=== PATIENT | female | born 1960 | race Caucasian/White ===

== ENCOUNTER 2018-12-22 15:30 | Inpatient (IN) | payer BC ==
[~2018-12-22] VITALS: Ht 157.5 cm; Wt 45.5 kg
[2018-12-29] VITALS (22 sets, daily range): BP systolic 96–124; BP diastolic 42–71; PULSE 50–71; RESP 16–20; Ht 157.5 cm; Wt 45.5 kg
--- NOTE | 2018-12-29 15:14 | PREAC ---
Date/Time of Note Date/Time of Note DATE: 12/29/18 TIME: 15:08 Anesthesia Eval and Record Evaluation Time Pre-Procedure Interview DATE: 12/29/18 TIME: 15:08 Age 58 Sex female NPO: Other (1/2 cup black coffee at 09:00) Preoperative diagnosis Uterine fibroid, right ovarian mass Planned procedure Laparoscopy assisted hysterectomy, possible BSO Past Medical History Past Medical History: Includes Psych: Anxiety Surgery & Anesthesia Issues No known issue Meds Anticoagulation: No Beta Wolfgang within 24 hr: No Reason Beta Wolfgang not given: Pt. not on B-Wolfgang No Active Prescriptions or Reported Meds Current Medications Lactated Ringer's 1,000 ml @ 25 mls/hr Q24H IV ; Start 12/29/18 at 14:30 Meds reviewed: Yes Allergies Coded Allergies: No Known Allergy (Unverified , 12/29/18) Allergies Reviewed: Yes Labs/Studies Labs Reviewed: Reviewed by anesthesiologist Result Diagram: 12/29/18 1428 Laboratory Tests 12/29/18 14:28 test: N/A Pre-procedure Exam Airway: Adequate mouth opening Mallampati: Mallampati I Teeth: Normal Lung: Normal Heart: Normal ASA Physical Status ASA physical status: 2 Emergency: None Planned Anesthetic General/MAC: ETT Planned Pain Management Parenteral pain med Pre-operative Attestations Prior to commencing anesthesia and surgery, the patient was re-evaluated, there was verification of: *The patient's identity *The results of appropriate recent lab work and preoperative vital signs *The above evaluation not changing prior to induction *Anesthetic plan, risk benefits, alternative and complications discussed with patient/family; questions answered; patient/family understands, accepts and wishes to proceed. XIMENA WOOD MD Dec 29, 2018 15:14
[2018-12-29] MEDS ORDERED: ONDANSETRON 4 MG INJ ONE (16:00)
[2018-12-29] MEDS ORDERED: METOCLOPRAMIDE 10 MG INJ ONE (16:00)
--- NOTE | 2018-12-29 16:02 | HPN ---
Date/Time of Note Date/Time of Note DATE: 12/29/18 TIME: 16:02 Interval H&P Admission Note Pt. seen H&P reviewed: No system changes RADHA UMAÑA MD Dec 29, 2018 16:02
[2018-12-29] MEDS ORDERED: PROPOFOL 20 ML ONE (16:09)
[2018-12-29] MEDS ORDERED: SUCCINYLCHOLINE CHLORIDE 100 MG/5 ML SYG IV ONE (16:09)
[2018-12-29] MEDS ORDERED: GLYCOPYRROLATE 0.4 MG INJ ONE (16:09)
[2018-12-29] MEDS ORDERED: NEOSTIGMINE 3 MG/3 ML SYRINGE ONE (16:09)
[2018-12-29] MEDS ORDERED: ROCURONIUM 50 MG INJ ONE ×2 (16:09→17:13)
[2018-12-29] MEDS ORDERED: LIDOCAINE 2% (SDV) 5 ML INJ ONE (16:09)
[2018-12-29] MEDS ORDERED: CEFAZOLIN 1 GM INJ ONE (16:28)
[2018-12-29] MEDS ORDERED: BUPIVACAINE 0.25%/EPI (SDV) 30 ML INJ ONE (16:59)
[2018-12-29] MEDS ORDERED: EPHEDrine 25 MG/5 ML SYG ONE (17:31)
[2018-12-29] MEDS ORDERED: FENTAnyl 50 MCG/ML VIAL IV PRN ×2 (18:00)
[2018-12-29] MEDS ORDERED: DIPHENHYDRAMINE 50 MG INJ IV PRN (18:00)
[2018-12-29] MEDS ORDERED: MIDAZOLAM 1 MG/ML 2 ML INJ IV PRN (18:00)
[2018-12-29] MEDS ORDERED: METOCLOPRAMIDE 10 MG INJ IV PRN (18:00)
[2018-12-29] MEDS ORDERED: HYDROmorphONE 1 MG/5 ML IV SYRINGE IV PRN ×3 (18:00)
[2018-12-29] MEDS ORDERED: MEPERIDINE 25 MG INJ IV PRN (18:00)
[2018-12-29] MEDS ORDERED: hydrALAzine 20 MG INJ IV PRN (18:00)
[2018-12-29] MEDS ORDERED: EPHEDrine 25 MG/5 ML SYG IV PRN (18:00)
[2018-12-29] MEDS ORDERED: ONDANSETRON 4 MG INJ IV PRN (18:00)
[2018-12-29] MEDS ORDERED: LABETALOL HCL 20MG INJ IV PRN (18:00)
[2018-12-29] MEDS ORDERED: OXYCODONE/ACETAMINOPHEN (5/325) TAB PO PRN ×2 (18:00)
[2018-12-29] MEDS ORDERED: FENTAnyl 50 MCG/ML VIAL ONE (18:09)
[2018-12-29] MEDS ORDERED: SILVER NITRATE SWAB ONE (19:20)
[2018-12-29] MEDS: FENTAnyl 50 MCG/ML VIAL IV PRN ×2 (20:08→20:18)
--- NOTE | 2018-12-29 20:28 | OPR ---
Date/Time of Note Date/Time of Note DATE: 12/29/18 TIME: 20:11 Operative Report Procedure Date: Dec 29, 2018 Preoperative Diagnosis 1. Abdominal and pelvic pain 2. Constipation/difficulty with stool evacuation 3. Right pelvic cyst 4. Uterine fibroids Postoperative Diagnosis 1. Ventral recurrent hernia 2. Abdominal wall suture granuloma 3. Large right paraovarian cyst 4. Right tube and ovary torsion due to cyst however not gangrenous 5. Diverticulosis with thickened sigmoid upper rectum (questionable history of diverticulitis) 6. Slight discoloration of liver color 7. Large posterior uterine fibroid with other uterine fibroids 8. Abdominal and pelvic pain 9. Constipation/difficulty with stool evacuation Operation/Procedure Performed 1. Primary repair of ventral hernia 2. Excision of abdominal wall suture granuloma 3. Diagnostic laparoscopy 4. Laparoscopic guided bilateral transversus abdominis plane block 5. Local anesthetic injection, [id number] 6. Intraoperative consultation 7. Laparoscopic assisted total abdominal hysterectomy with right salpingo- oophorectomy and cystectomy (co-surgeon) Surgeon Kika Gil MD Freight Breaker Shivani Iraheta MD Anesthesia Type: general (, Local, regional) Anesthesiologist: XIMENA WOOD MD Estimated Blood Loss: 10 - 50 ml's Transfusion none Specimen 1. Uterus 2. Right ovary, tube, and cyst 3. Pelvic fluid washings Grafts/Implants none Tubes/Drains None Complications none Pt Condition Post Procedure: stable Disposition: PACU Indications 58-year-old female with chronic abdominal and pelvic pain associated with difficulty with defecation. Imaging has identified uterine fibroids with pelvic cyst. She is here for diagnosis and indicated surgeries. General surgical intraoperative saltation is obtained by the dice manager for further evaluation, treatment and assistance in surgery. Procedure Description Patient had been brought in & placed on the operating table, both arms tucked and all pressure points well-padded. After induction of anesthesia Dhillon was placed she was placed in lithotomy and preoperative antibiotics administered. T imeout was performed. Gynecology initiated her surgery and cervical instruments were placed. I was called in at this time. Local anesthetic injection was performed at all surgical sites. Incision was made through the previous ventral hernia incision and a small defect was identified. Suture granuloma was also identified at the site. Suture granuloma was sharply excised and sent to pathology. Using blunt dissection abdomen was safely entered 5 mm port was applied and abdomen was insufflated to 15 mmHg CO2. Under direct visualization to other 5 mm ports were placed on either side of the abdomen. Laparoscopic guided bilateral transversus abdominis plane block was performed to aid with pain control intra-and postoperatively. Investigation of the abdomen identified normal appendix. There were slightly discolored. Gallbladder is within normal parameters. Bowel mostly normal ho wever sigmoid and upper rectum had diverticuli with some thickening with possible evidence of previous infection. Uterus has a large posterior fibroid with small or other fibroids. There is a large pelvic cyst filling up the entire pelvis. The cyst looks benign. However is pushing on the rectum. The cyst has also caused torsion of the right tube and ovary. This must be interm ittent because there is no gangrene of the structures. Left ovary seems within normal parameters. At this point decision made to proceed with right salpingo-oophorectomy and total abdominal hysterectomy which would be dictated by the dice manager. Pelvi c fluid was also aspirated and sent to pathology. After completion of above, the ventral hernia fascial defect was closed prima rily using Endo Close and 0 Vicryl in a [id number] manner. There was complete hemostasis. CO2 was suctioned out and ports removed. Wounds were thoroughly irrigated and skin was closed with 4-0 Monocryl in subcuticular fashion and covered with Dermabond. Patient was extubated and transferred to recovery room in stable condition and all counts were correct at the end of the operation x2. KIKA GIL MD Dec 29, 2018 20:22
[2018-12-29] MEDS ORDERED: HYDROmorphONE 0.2 MG/ML PCA IV SCH (21:00)
--- NOTE | 2018-12-29 21:07 | PAC ---
Date/Time of Note Date/Time of Note DATE: 12/29/18 TIME: 21:06 Post-Anesthesia Notes Post-Anesthesia Note Last documented vital signs Vital Signs Date Temp Pulse Resp B/P (MAP) Pulse Ox O2 O2 Flow FiO2 Time Delivery Rate 12/29/18 99.5 67 16 111/62 97 Room Air 15:03 (78) Activity: WNL Respiratory function: WNL Cardiovascular function: WNL Mental status: Baseline Pain reasonably controlled: Yes Hydration appropriate: Yes Nausea/Vomiting absent: Yes Comments BT: 98.2 XIMENA WOOD MD Dec 29, 2018 21:07
--- NOTE | 2018-12-29 22:11 | OPR ---
Date/Time of Note Date/Time of Note DATE: 12/29/18 TIME: 21:50 Operative Report Free Text/Dictation Procedure Date: Dec 29, 2018 Preoperative Diagnosis Preoperative Diagnosis 1. Abdominal and pelvic pain 2. Constipation/difficulty with stool evacuation 3. Large symptomatic Right ovarian simple cyst 4. Uterine fibroids, increased in size Postoperative Diagnosis Postoperative Diagnosis 1. Ventral recurrent hernia 2. Large right paraovarian cyst 3. Right tube and ovary torsion due to cyst however not gangrenous finding consistent with intermittent torsion 4. Large posterior intramural fibroid. 5. atrophic vaginits. Atrophic cervix 6. Normal Left ovary and tube. RT ovary appears normal as well. Operation/Procedure Performed Diagnostic laparoscopy Laparoscopic right salpingo-oophorectomy as well as right paraovarian cystectomy Upper scopic assisted vaginal hysterectomy. Jeffery Pfeiffer was called in to surgery for consult and he performed repair and removal of the granuloma in the area of hernia repair as well Performed Exploratory Diagnosic Laparascopy. Please see Dr. Gil's note for this part of the dictation. Surgeon see signature line MD Pierce Xavier MD Machine Coremaker Surgical scrub Anesthesia Type: general Anesthesiologist: XIMENA WOOD MD Estimated Blood Loss: 50 - 100 ml's Transfusion none Specimen Right paraovarian cyst wall, right tube and ovary, uterus with attached fibroid and cervix Grafts/Implants none Tubes/Drains None Complications none Pt Condition Post Procedure: stable Disposition: PACU Indications Left lower abdominal pain, right and large ovarian cyst as well as uterine fibroid Procedure Description 58-year-old G1, P0 female postmenopausal with chronic left-sided pelvic pain as well as right ovarian cyst and fibroid that recently slightly increase in the size and became symptomatic patient desires to proceed with surgery. After counseling regarding different options patient desires to proceed with laparoscopic right salpingo-oophorectomy and possible bilateral salpingo- nephrectomy and possible lap scopic assisted vaginal hysterectomy with bilateral salpingo-oophorectomy at the discretion of the surgeon. Patient reported chronic abdominal pain with difficulty with bowel movements. She underwent colonoscopy that showed colon polyps and otherwise unremarkable. She was referred to commissioning specialist for surgery due to symptomatic large right ovarian cyst that has been increased slightly in the size as well as increasing size of uterine fibroids. Patient reports history of hernia surgery in the past x2 with removal of mesh. She reports symptoms of abdominal pain has been going on for the last 4 to 5 years after the hernia repair. She was counseled regarding risk and benefit of procedure including risk of infection, bleeding, damage to surrounding structures including bowel and bladder and risk of blood transfusion including but not limited to blood borne infection including HIV, hepatitis B and C and transfusion reaction as well as risk of anesthesia including but not limited to anesthesia complications, , risk of need for additional surgical procedure in the future. Informed consent was obtained. Patient was then taken to the OR and was placed under general LMA anesthesia. She was placed in dorsolithotomy position. Timeout procedure was completed and patient was identified correctly. Dhillon catheter was placed inside the bladder and she was then prepped and draped in the sterile fashion. Then a bivalve speculum was placed inside the vagina. Anterior lip of the cervix was grasped using tenaculum. Cervix and vagina appeared to be atrophic and small that correlated with her postmenopausal status as well as nulliparous. Attempt was made to place the V care catheter and HUMI manipulator in order to manipulate the uterus intraoperatively that was unsuccessful due to stenotic cervix. So this procedure has failed even after serial dilation of the Hegar dilator. At this point a hookah was passed through the cervix and it was transfixed to the tenaculum on the anterior lip of the cervix. A sponge stick also placed inside the vagina. Then the gloves were changed and attention was made to the abdomen. After injection of about 3 to 4 cm quarter percent Marcaine above and around the umbilicus a 5 mm incision was made above the umbilicus. At this point due to presents of hernia in the umbilicus Intra-Op consultation with Dr. Gil was performed who attended to the case and scrubbed in. He opened the umbilical hernia sac and with careful attention the 5 mm trocar was passed through this incision into the abdomen successfully. Then intra-abdominal insufflation started using CO2 gas. After adequate insufflation of the abdominal cavity then the entire pelvis and abdomen was visualized and evaluated. Then Two 5 mm trochars also in the right and left lower quadrant under direct visualization after negative transillumination test was placed. There was evidence of an 7 to 8 cm simple mobile cystic mass in the right adnexa that had been twist 3-4 times around the pedicle. Tubo-ovarian structure in that site was twisted several times around the base. However the tube and ovary and cyst did not appear to go necrotic. There was also evidence of a large about 5 to 6 cm posterior uterine intramural fibroid. The left tube and ovary appeared to be normal. Apparent further visualization evaluation of the pelvis cavity there was evidence of diverticulosis of the colon, this part was visualized and evaluated by general surgeon Dr. Gil. Then at this point decision was made to proceed with right salpingo-oophorectomy as well as lap or scopic assisted vaginal hysterectomy. Then using thunder beat the IP ligament and the right side was clamped click and coagulated and then dissected and the tubo-ovarian complex with attached paratubal enlarged cyst was dissected off of the uterus. It was then placed in the posterior cul-de-sac. Then procedure proceeded by performing hysterectomy in this fashion. First the utero-ovarian ligament in the left side was clamped click and coagulated using thunder beat then the round ligaments in the right and left side was clamped click and coagulated and was dissected using thunder beat. A bladder flap was created. The bladder was gently pushed down from the pubovesical fascia as well as pubocervical fascia with careful attention to the bladder. Then the broad ligament in the right and left side was serially with close proximity to the uterus serially was clamped click and coagulated while data entry assistant was pushing the uterus toward the patient;s head. Of note that at all time careful attention was paid to the ureters and the entire procedure to ensure ureters staying away of the resection sites. Then the uterine ligaments in both sides was clamped click and coagulated and dissected and then the uterosacral ligaments and cardinal ligament in a similar fashion was clamped click and coagulated and dissected. Due to inability to place the V care or uterine manipulator due to small atrophic nulliparous cervix, there was some difficulty in finding the entire circumference of the cervix in order to dissected from the vaginal cuff at this point decision was made to proceed this parts vaginally. Then attention was turned to the vagina where the anterior and posterior lip of the cervix was grasped using Moon clamp after removing of the Hulka clamp and tenaculum from the cervix. Then the mucosa around the cervix anteriorly posteriorly and laterally using Bovie and cut setting was incised. Then bladder was dissected off of the cervix anteriorly. Then the peritoneum of the cul-de-sac was entered with careful attention to underlying structure. Then the cardinal ligaments in the right and left side was then clamped using Rodriguez clamp and was dissected off and suture-ligated. The cervix and attached uterus and fibroids were then delivered after Ling ligation of the cardinal ligament on both sides through the vaginal cuff. Then attention was turned to the dissected paraovarian cyst and tube and ovary in the right side and it was then placed in the 15 cm Endobag that was passed through the vaginal cuff to the abd omen. The cyst intact was placed inside the Endobag and was delivered through the Endobag from the vaginal cuff. No intra-abdominal leaking or rupture of the cyst occurred during the procedure. After this the vaginal cuff was repaired in multiple [id number] sutures using 1-0 Vicryl in interrupted fashion. Excellent hemostasis of the vaginal cuff obtained. Then the vagina and the vulva was evaluated. Slight area of oozing of atrophic mucosa of the vestibule was noted that controlled using silver nitrate stick. Irrigation of the vagina confirmed adequate hemostasis. Then the entire Pelvis and abdomen was visualized after changing of the gloves reassured. Laparoscopically. Excellent hemostasis of the cough was ureters in both sides were trace and was noted to be intact and normal. Normal peristalsis of the ureters was noted. Then the upper abdomen,:, Appendix, gallbladder and the rest of the abdomen and pelvis was visualized systematically by Dr. Gil. Please refer to Dr. Gil's note for this part of the dictation. Then the umbilical hernia granuloma was excised by Dr. Gil. Please refer to this part of dictation to his nose. After assurance about hemostasis at the completion of the procedure the trochars and umbilicus and left and right lower quadrant was removed after desufflation of the entire abdomen and pelvis by the patient was in deep Trendelenburg position. Sponge lap and his instrument count were correct x2. Patient tolerated the procedure well and was transferred to recovery room in stable condition RADHA UMAÑA MD Dec 29, 2018 22:11
[2018-12-29] MEDS: LACTATED RINGER'S 1,000 ML IV SCH (22:45)
[2018-12-30 00:15] VITALS: BP 113/55; PULSE 71; RESP 18
[2018-12-30 01:19] VITALS: BP 101/57; PULSE 79; RESP 18
[2018-12-30] MEDS: LACTATED RINGER'S 1,000 ML IV SCH ×3 (04:35→21:35)
[2018-12-30] MEDS ORDERED: GENTAMICIN 80 MG INJ IM SCH (06:00)
[2018-12-30] MEDS: CLINDAMYCIN 900 MG/D5W (PMX) 50 ML IVPB SCH ×3 (06:00→17:32)
[2018-12-30] MEDS ORDERED: GENTAMICIN 80 MG/NS (PMX) 50 ML IVPB SCH ×2 (07:00→14:00)
[2018-12-30] MEDS ORDERED: GENTAMICIN 80 MG INJ IVPB SCH ×2 (07:00→14:00)
[2018-12-30] MEDS: GENTAMICIN 80 MG/NS (PMX) 50 ML IVPB SCH ×3 (07:54→23:27)
[2018-12-30 08:56] VITALS: BP 110/65; PULSE 56; RESP 16
[2018-12-30] MEDS ORDERED: NALOXONE (0.4 MG/ML) INJ IV PRN (10:30)
[2018-12-30] MEDS ORDERED: DIPHENHYDRAMINE 50 MG INJ IV PRN (10:30)
[2018-12-30] MEDS ORDERED: HYDROCODONE/APAP (5/325) TAB PO PRN (10:30)
[2018-12-30] MEDS ORDERED: OXYCODONE/ACETAMINOPHEN (5/325) TAB PO PRN ×2 (10:30)
[2018-12-30] MEDS ORDERED: ONDANSETRON 4 MG INJ IV PRN (10:30)
[2018-12-30] MEDS ORDERED: HYDROmorphONE 0.2 MG/ML PCA IV SCH (10:30)
--- NOTE | 2018-12-30 15:44 | QN ---
Documentation Comment Patient tolerated clear liquid diet. Still does not have appetite. Has not passed flatus. Has not been out of the bed yet. Denies any nausea vomiting. Reports pain well controlled with ORCHARD HAND Dilaudid. General appearance: Alert and oriented x4 . Appears to be in mild to moderate distress Abdomen: Soft, moderately distention and tympanic noted. There is appropriate tenderness in the left scopic incisions noted. Lungs: Clear to auscultation bilaterally CV: RRR Extremities: No calf tenderness, no click no edema no cord palpable Pelvic exam deferred. Intake and Output 12/30/18 0707:00 IntakeIntake Total 3750 ml OutputOutput Total 1390 ml BalanceBalance 2360 ml IntakeIntake Oral 200 ml IVIV Total 3550 ml OutputOutput Urine Total 1350 ml EstimatedEstimated Blood Loss 40 ml VS - Last 72 Hours, by Label Date Temp Pulse Resp B/P (MAP) Pulse Ox O2 O2 Flow FiO2 Time Delivery Rate 12/30/18 18 12:00 12/30/18 98.0 56 16 110/65 98 Nasal 08:56 (80) Cannula 12/30/18 18 08:00 12/30/18 18 04:49 12/30/18 98.2 79 18 101/57 97 Nasal 2.0 01:19 (72) Cannula 12/30/18 18 01:12 12/30/18 97.9 71 18 113/55 98 Nasal 2.0 00:15 (74) Cannula 12/29/18 71 19 118/71 99 Nasal 2.0 23:15 (87) Cannula 12/29/18 98.0 69 19 115/53 98 Nasal 2.0 22:49 (73) Cannula 12/29/18 69 18 119/59 99 Nasal 2.0 22:15 (79) Cannula 12/29/18 66 18 123/58 Nasal 22:00 (79) Cannula 12/29/18 65 18 121/58 95 Nasal 2.0 21:43 (79) Cannula 12/29/18 18 91 Room Air 21:40 12/29/18 97.5 64 18 124/58 95 Room Air 21:25 (80) 12/29/18 98.3 60 20 106/61 100 Nasal 2.0 21:15 (76) Cannula 12/29/18 59 17 102/63 100 Nasal 2.0 21:10 (76) Cannula 12/29/18 58 16 102/54 100 Nasal 2.0 21:05 (70) Cannula 12/29/18 59 20 106/50 100 Nasal 2.0 21:00 (68) Cannula 12/29/18 50 17 103/42 100 Nasal 2.0 20:55 (62) Cannula 12/29/18 60 17 105/50 100 Nasal 2.0 20:50 (68) Cannula 12/29/18 52 19 110/50 99 Nasal 2.0 20:45 (70) Cannula 12/29/18 52 20 102/52 99 Nasal 2.0 20:40 (69) Cannula 12/29/18 52 17 100/48 98 Nasal 2.0 20:35 (65) Cannula 12/29/18 52 20 98/48 (65) 98 Nasal 2.0 20:30 Cannula 12/29/18 60 19 96/54 (68) 98 Nasal 2.0 20:25 Cannula 12/29/18 56 19 101/49 98 Nasal 2.0 20:20 (66) Cannula 12/29/18 98.0 20:15 12/29/18 69 20 115/60 99 Mask 2.0 20:05 (78) 12/29/18 98.2 69 19 112/60 99 Mask 2.0 19:58 (77) 12/29/18 99.5 67 16 111/62 97 Room Air 15:03 (78) Laboratory Tests Test 12/29/18 20:35 12/30/18 06:44 Urine Color YELLOW Urine Clarity SLIGHTLY CLOUDY A Urine pH 7.0 Urine Specific [place] 1.011 Urine Ketones NEGATIVE Urine Nitrite NEGATIVE Urine Bilirubin NEGATIVE Urine Urobilinogen NEGATIVE Urine Leukocyte Esterase NEGATIVE Urine Microscopic RBC 157 H Urine Microscopic WBC 2 Urine Mucus FEW A Urine Hemoglobin 2+ H Urine Glucose NEGATIVE Urine Total Protein NEGATIVE Lab Scanned Report REFERENCE LAB Assessment Postop day #1 Status post laparoscopicright salpingo-oophorectomy, and lap scopic assisted vaginal hysterectomy with removal of granuloma at the area of prior hernia repair Doing well Intra-Op finding, diverticulosis, enlarged posterior fibroid, normal ovaries and 8 cm paraovarian cyst in the right side that appears to be benign Continue routine postop care Advance diet, ambulation, DC Dhillon Simethicone 80 mg p.o. 3 times daily as needed gas pain Wean off of ORCHARD HAND with transition to oral pain medication RADHA UMAÑA MD Dec 30, 2018 15:44
[2018-12-30 15:48] VITALS: BP 94/52; PULSE 72; RESP 18
[2018-12-30] MEDS: ONDANSETRON 4 MG INJ IV PRN (15:58)
[2018-12-30] MEDS ORDERED: MAGNESIUM HYDROXIDE 30ML CUP PO ONE (17:00)
[2018-12-30] MEDS: HYDROCODONE/APAP (5/325) TAB PO PRN ×2 (17:23→21:35)
[2018-12-30 19:50] VITALS: BP 97/54; PULSE 65; RESP 18
[2018-12-30] MEDS: IBUPROFEN 400 MG TAB PO PRN (23:26)
[2018-12-31] MEDS: CLINDAMYCIN 900 MG/D5W (PMX) 50 ML IVPB SCH ×3 (01:16→12:00)
[2018-12-31 02:24] VITALS: BP 90/55; PULSE 60; RESP 18
[2018-12-31] MEDS: LACTATED RINGER'S 1,000 ML IV SCH ×2 (05:03→13:03)
[2018-12-31] MEDS: IBUPROFEN 400 MG TAB PO PRN ×3 (06:14→23:04)
[2018-12-31] MEDS: HYDROCODONE/APAP (5/325) TAB PO PRN ×3 (06:14→16:30)
[2018-12-31] MEDS: GENTAMICIN 80 MG/NS (PMX) 50 ML IVPB SCH ×2 (07:07→16:10)
[2018-12-31 07:44] VITALS: BP 102/53; PULSE 65; RESP 18
[2018-12-31] MEDS: ONDANSETRON 4 MG INJ IV PRN (10:20)
[2018-12-31 14:26] VITALS: BP 104/57; PULSE 62; RESP 18
[2018-12-31] MEDS: MAGNESIUM HYDROXIDE 30ML CUP PO PRN (16:45)
[2018-12-31] MEDS: MULTIVITAMINS/MINERALS TAB PO SCH (18:00)
--- NOTE | 2018-12-31 18:09 | QN ---
Documentation Comment Patient has not yet passed gas or have any bowel movement. She has not been eating reports decreased appetite. Has not been taking diet since not like to take beans due to chronic GI problem and bloating.. Not been drinking fluids. Does not like the taste of water Still feels pain around the umbilicus. Has been able to walk around inside the room. Urinated but reports her urine flow is a slow and deviated to one side. She reports dribbling. Denies any nausea or vomiting. Has been belching. Denies any vaginal bleeding. Denies any fever or chills. Complaint of back pain and upper neck pain that has this issue prior to procedure chronically and has been using topical medication for and requests that as well. Has been using incentive spirometer. Physical examination: General appearance: Alert and oriented x4 sitting in the chair. Appears to be mild to moderate distress Lungs: Clear to auscultation bilaterally CV: RRR Abdomen: Soft, mild to moderate tenderness around the lap scopic incision noted. No rebound tenderness, no guarding, no rigidity, no distention Pelvic exam deferred Extremities: No calf tenderness, no click no cord palpable Gait normal Assessment Status post laparoscopic-assisted vaginal hysterectomy and unilateral right salpingo-oophorectomy for symptomatic right para ovarian cyst, with torsion, and uterine fibroid, increases interval size. Intra-Op finding consistent with benign paraovarian cyst as well as benign uterine fibroid Tumor markers prior to procedure all negative and normal Patient had small increase in the size of the cyst and fibroid for the past couple years. Patient had a history of chronic left-sided abdominal pain that per patient started after her hernia surgery with mesh placement. Status post mesh removal Still continued to have left-sided abdominal pain. Status post repair of umbilical hernia by general surgeon Chronic Left lower abdominal pain , Bloating symtoms, S/p assessment as out patient by out GI. Has post colonoscopy noted to have diverticulosis and polyp. Polyp was removed. Intra-Op finding consistent with diverticulosis Postoperative day #2 Still has not been able to pass gas or have bowel movement P.o. intake poor Patient appears nutritional deficient. Reports due to chronic GI problem could not be able to tolerate p.o. well Low urine flow. Patient has not been taking oral fluid intake well Encouraged to increase p.o. intake Plan Consider checking post voiding residual x2 Continue ambulation GI consult CBC Albumin High residue diet RADHA UMAÑA MD Dec 31, 2018 18:08
[2018-12-31] MEDS: MULTIVITAMINS 30 ML CUP PEG SCH (18:30)
[2018-12-31] MEDS ORDERED: MENTHOL/METH SALICYLATE OINT TOP PRN (19:30)
[2018-12-31 19:59] VITALS: BP 114/63; PULSE 66; RESP 20
[2018-12-31] MEDS: DOCUSATE SODIUM 100 MG CAP PO SCH (21:09)
[2018-12-31] MEDS ORDERED: SPECIAL NON-STANDARD MEDICATION (BULK) TOP PRN (21:30)
[2019-01-01 02:15] VITALS: BP 118/62; PULSE 62; RESP 18
[2019-01-01] MEDS: IBUPROFEN 400 MG TAB PO PRN ×3 (05:42→20:35)
[2019-01-01] MEDS: MAGNESIUM HYDROXIDE 30ML CUP PO PRN ×2 (05:44→20:34)
[2019-01-01 08:26] VITALS: BP 127/61; RESP 18
[2019-01-01] MEDS: MULTIVITAMINS 30 ML CUP PEG SCH (09:00)
[2019-01-01] MEDS: MULTIVITAMINS/MINERALS TAB PO SCH (09:00)
[2019-01-01] MEDS ORDERED: METHYLPHENIDATE 5 MG TAB PO SCH (09:00)
[2019-01-01] MEDS: DOCUSATE SODIUM 100 MG CAP PO SCH ×2 (09:03→20:28)
--- NOTE | 2019-01-01 10:57 | CONS ---
Assessment/Plan Assessment/Plan Hospital Course (Demo Recall) Summary Assessment and Plan: Assessment: Bloating/constipation post surgical intervention Lower abd pain Status post laparoscopic-assisted vaginal hysterectomy and unilateral right salpingo-oophorectomy for symptomatic right para ovarian cyst, with torsion, and uterine fibroid, History of irregular bowel habits Plan: Patient states she is now passing gas, encourage regular ambulation and av oidance of narcotics possible We will start Culturelle p.o. twice daily KUB-rule out ileus versus obstruction Start MiraLAX p.o. daily Conditions based on clinical course Patient seen in collaboration with Dr. Ramirez CC: TALISHA RAMIREZ MD ; Consultation Date/Type/Reason Admit Date/Time Dec 29, 2018 at 13:16 Date of Consultation: Jan 01, 2019 Type of Consult GI Reason for Consultation Poor appetite Constipation/inability to pass gas post surgical procedure Date/Time of Note DATE: 01/01/19 TIME: 10:52 Hx of Present Illness This is a 58-year-old female with past medical history of irregular bowel habits, sleep disorder, lower back pain, anxiety, menopause, ovarian cysts and uterine fibroids who was admitted for planned lap scopic hysterectomy patient underwent surgery 12/29/2018 with lap scopic right salpingo-oophorectomy and rig ht paraovarian cystectomy as well as laparoscopic-assisted vaginal hysterectomy, and primary repair of ventral hernia. Surgery patient has had increased bloating without ability to pass gas or have a bowel movement GI has been consulted for further evaluation. Time evaluation patient states she is now passing gas there are active bowel sounds to right lower quadrant and left lower quadrant with hypoactive bowel sounds to left upper quadrant and right upper quadrant she is currently on simethicone with minimal relief. Patient states she has had a long history of irregular bowel habits as well as bloating and other GI problems she sees a mexican food machine tender in the [facility] and states her last colonoscopy was about 7 weeks ago. Patient verbalizes that she is on a very strict diet at home which allows her to have bowel movements regularly and takes probiotics twice a day. Patient requesting to start probiotics this hospitalization agreed and will start Culturelle p.o. twice tova y. Patient states overall she is feeling better discussed plan to encourage ambulation patient states that she cannot stay in the hospital much longer and plans to leave the next few days. Review of Systems: [A 12 system, review was conducted and is negative except as noted in the HPI or here.] Past Medical History Home Meds No Active Prescriptions or Reported Meds Medications Current Medications Ondansetron HCl (Zofran Inj) 4 mg Q6H PRN IV NAUSEA AND/OR VOMITING Last administered on 12/31/18at 10:20; Admin Dose 4 MG; Start 12/30/18 at 10:30 Naloxone HCl (Narcan) 0.2 mg Q2M PRN IV RR 8 BREATHS/MIN OR LESS; Start 12/30/18 at 10:30 Acetaminophen/ Hydrocodone Bitart ([place] (5/325)) 1 tab Q4H PRN PO MODERATE PAIN LEVEL 4-6 Last administered on 12/31/18at 16:30; Admin Dose 1 TAB; Start 12/30/18 at 10:30 Acetaminophen/ Hydrocodone Bitart ([place] (5/325)) 2 tab Q4H PRN PO MODERATE PAIN LEVEL 4-6; Start 12/30/18 at 10:30 Ibuprofen (Motrin) 400 mg Q6H PRN PO MILD PAIN(1-3) OR TEMP>38C Last administered on 01/01/19at 05:42; Admin Dose 400 MG; Start 12/30/18 at 10:30 Simethicone (Mylicon) 80 mg TID PO Last administered on 01/01/19at 09:03; Admin Dose 80 MG; Start 12/30/18 at 13:00 Magnesium Hydroxide (Milk Of Mag) 30 ml BID PRN PO CONSTIPATION Last administered on 01/01/19at 05:44; Admin Dose 30 ML; Start 12/30/18 at 17:00 Multivitamins/ Minerals (Theragran-M) 1 tab DAILY PO ; Start 12/31/18 at 18:00 Docusate Sodium (Colace) 100 mg BID PO Last administered on 01/01/19 09:03; Admin Dose 100 MG; Start 12/31/18 at 21:00 Multivitamins (Multivitamin) 30 ml DAILY PEG ; Start 12/31/18 at 18:30 Non-Formulary Medication 1 APPLICATION TID PRN TOP PAIN; Start 12/31/18 at 21:30 Methylphenidate HCl (Ritalin) 2.5 mg DAILY PO ; Start 01/01/19 at 09:00 Allergies: Coded Allergies: No Known Allergy (Unverified , 12/29/18) Social History Smoking Status: Current some day smoker Exam/Review of Systems Exam Vitals Vital Signs Date Temp Pulse Resp B/P (MAP) Pulse Ox O2 O2 Flow FiO2 Time Delivery Rate 01/01/19 98.7 18 127/61 90 08:26 (83) 01/01/19 62 02:15 12/30/18 Room Air 15:48 12/30/18 2.0 01:19 Intake and Output 12/31/18 12/31/18 01/01/19 1515:00 23:00 07:00 IntakeIntake Total 540 ml 1165 ml 300 ml BalanceBalance 540 ml 1165 ml 300 ml Constitutional: alert, oriented Psych: no complaints, nl mood/affect Head: normocephalic Eyes: nl conjunctiva, EOMI ENMT: nl external ears & nose, nl lips & teeth Neck: supple, non-tender Respiratory: clear to auscultation Cardiovascular: regular rate and rhythm, nl pulses Gastrointestinal: bowel sounds (RUQ/LUQ - hypoactive, RLQ/LLQ- active), distended (mildly), surgical scars, tender Musculoskeletal: nl extremities to inspection Results Result Diagram: 12/31/18 1821 12/31/18 1821 Results 24hrs Laboratory Tests Test 12/31/18 18:21 White Blood Count 6.2 Red Blood Count 3.62 L Hemoglobin 11.1 L Hematocrit 34.6 L Mean Corpuscular Volume 95.6 Mean Corpuscular Hemoglobin 30.7 Mean Corpuscular Hemoglobin Concent 32.1 Red Cell Distribution Width 13.5 Platelet Count 143 # Mean Platelet Volume 11.3 H Immature Granulocytes % 0.300 Neutrophils % 73.8 Lymphocytes % 18.5 Monocytes % 6.6 Eosinophils % 0.5 Basophils % 0.3 Nucleated Red Blood Cells % 0.0 Immature Granulocytes # 0.020 Neutrophils # 4.6 Lymphocytes # 1.2 Monocytes # 0.4 Eosinophils # 0.0 Basophils # 0.0 Nucleated Red Blood Cells # 0.0 Sodium Level 137 Potassium Level 3.7 Chloride Level 102 Carbon Dioxide Level 33 H Anion Gap 2 L Blood Urea Nitrogen 6 L Creatinine 0.68 Est Glomerular Filtrat Rate mL/min > 60 Glucose Level 117 Calcium Level 8.3 L Total Bilirubin 0.4 Direct Bilirubin 0.00 Indirect Bilirubin 0.4 Aspartate Amino Transf (AST/SGOT) 17 Alanine Aminotransferase (ALT/SGPT) 23 Alkaline Phosphatase 44 Total Protein 5.4 L Albumin 2.9 L Globulin 2.50 Albumin/Globulin Ratio 1.16 Medications Medication Current Medications Ondansetron HCl (Zofran Inj) 4 mg Q6H PRN IV NAUSEA AND/OR VOMITING Last adm inistered on 12/31/18at 10:20; Admin Dose 4 MG; Start 12/30/18 at 10:30 Naloxone HCl (Narcan) 0.2 mg Q2M PRN IV RR 8 BREATHS/MIN OR LESS; Start 12/30/18 at 10:30 Acetaminophen/ Hydrocodone Bitart ([place] (5/325)) 1 tab Q4H PRN PO MODERATE PAIN LEVEL 4-6 Last administered on 12/31/18at 16:30; Admin Dose 1 TAB; Start 12/30/18 at 10:30 Acetaminophen/ Hydrocodone Bitart ([place] (5/325)) 2 tab Q4H PRN PO MODERATE PAIN LEVEL 4-6; Start 12/30/18 at 10:30 Ibuprofen (Motrin) 400 mg Q6H PRN PO MILD PAIN(1-3) OR TEMP>38C Last administered on 01/01/19 05:42; Admin Dose 400 MG; Start 12/30/18 at 10:30 Simethicone (Mylicon) 80 mg TID PO Last administered on 01/01/19 09:03; Admin Dose 80 MG; Start 12/30/18 at 13:00 Magnesium Hydroxide (Milk Of Mag) 30 ml BID PRN PO CONSTIPATION Last administered on 01/01/19at 05:44; Admin Dose 30 ML; Start 12/30/18 at 17:00 Multivitamins/ Minerals (Theragran-M) 1 tab DAILY PO ; Start 12/31/18 at 18:00 Docusate Sodium (Colace) 100 mg BID PO Last administered on 01/01/19 09:03; Admin Dose 100 MG; Start 12/31/18 at 21:00 Multivitamins (Multivitamin) 30 ml DAILY PEG ; Start 12/31/18 at 18:30 Non-Formulary Medication 1 APPLICATION TID PRN TOP PAIN; Start 12/31/18 at 21:30 Methylphenidate HCl (Ritalin) 2.5 mg DAILY PO ; Start 01/01/19 at 09:00 BROOKE AGEE Jan 01, 2019 10:57
[2019-01-01] MEDS: LACTOBACILLUS RHAMNOSUS CAP PO SCH ×2 (12:10→20:28)
--- NOTE | 2019-01-01 18:56 | PN ---
Date/Time of Note Date/Time of Note DATE: 01/01/19 TIME: 18:55 Assessment/Plan Lines/Catheters IV Catheter Type (from Nrs): Peripheral IV Dhillon in Place (from Nrs): No Assessment/Plan Chief Complaint/Hosp Course 1. Paralytic ileus improved -slow diet advancement -oob/ambulate -chew gum -dc planning ok from surgical standpoint 2. Anemia, probable dilutional 3. Hypoalbuminemia, multifactorial -diet optimization 4. Diverticulosis and evidence of thickening of sigmoid -diet and lifestyle optimization -eventual abx trial tx if sx do not improve Thank you, Subjective 24 Hr Interval Summary Flatus. No bm. No n/v on soft diet. No dysuria. Pain improved. No f/c. No n/v. No cp/sob. No cough. No sz. No bleeding. Labs noted. Cylindrical object on kub is a lip balm she still had in her pocket. Exam/Review of Systems Vital Signs Vitals Vital Signs Date Temp Pulse Resp B/P (MAP) Pulse Ox O2 O2 Flow FiO2 Time Delivery Rate 01/01/19 98.7 18 127/61 90 08:26 (83) 01/01/19 62 02:15 12/30/18 Room Air 15:48 12/30/18 2.0 01:19 Intake and Output 12/31/18 12/31/18 01/01/19 1515:00 23:00 07:00 IntakeIntake Total 540 ml 1165 ml 300 ml BalanceBalance 540 ml 1165 ml 300 ml Exam Constitutional: alert, oriented; No distress Psych: nl mood/affect; No anxiety, No confusion Head: normocephalic, atraumatic Eyes: nl conjunctiva, EOMI, PERRL; No icteric ENMT: nl external ears & nose, nl lips & teeth, mucosa pink and moist Neck: supple, non-tender; No jvd Respiratory: normal air movement; No congested cough, No labored breathing Cardiovascular: regular rate and rhythm; No edema Gastrointestinal: soft, non-tender; No distended, No rebound or guarding Musculoskeletal: nl extremities to inspection, nl gait and stance; No joint tenderness Extremities: normal pulses; No calf tenderness, No cyanosis, No edema Skin: No rash or lesions, No diaphoresis Lymph: nl lymph nodes Results Result Diagram: 12/31/18 1821 12/31/18 1821 KIKA BATES MD Jan 01, 2019 18:56
[2019-01-01 19:05] VITALS: BP 148/72; PULSE 62; RESP 16
--- NOTE | 2019-01-01 19:50 | QN ---
Documentation Comment Tolerateing diet, Pain well controlled. She requests to go home. Ambulating per report from nurse. S/p nutrition consultation Afebrle. Urinated. PVR significantly improved Seen by DR. Jeffery oGel for discharge DC home Follow up with Office in 2 weeks or sooner PRN Follow up with GI after discharge Plan of care discussed with the patient and RN RADHA UMAÑA MD Jan 01, 2019 19:50
--- NOTE | 2019-01-01 19:51 | PD.PPDC ---
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
--- NOTE | 2019-01-01 19:58 | DS ---
Date/Time of Note Date/Time of Note DATE: 01/01/19 TIME: 19:54 Discharge Summary Admission/Discharge Info Admit Date/Time Dec 29, 2018 at 13:16 Discharge Date/Time 01/01/2019 Discharge Diagnosis Pelvic pain Fibroid uterus Paraovarian cyst, Diverticulosis. Malnutrition Patient Condition: Good Consults GI General surgery Deliverer Outside Procedures 1. Diagnostic Laparascopy 2. Laparascopic assisted vaginal Hysterectomy and RT Salpingoophorectomy and removal of RT Torsed paraovarian cyst 3. Repair of the umbilical hernia and removal of the granuloma by General surgeon Hx of Present Illness 58-year-old G1, P0 postmenopausal female with chronic left-sided lower abdominal pain, noted to have fibroids and right ovarian cyst that had been slight increase in the size over a period of 1 and half year. She also had some problems with defecation. Underwent colonoscopy by her GI as outpatient and noted to have colon polyp and diverticulosis. Polyp was removed and patient desires to proceed with surgical management with cystectomy and possible removal of fibroid and hysterectomy due to current constant worsening abdominal pain. Patient underwent diagnostic laparoscopy and noted to have a right sided 8 cm torsed simple looking ovarian cyst as well as a 8 cm posterior uterine fibroid that appeared to be degenerated. As well as diverticulosis. Intra-Op consultation with general surgeon was done. Patient underwent laparoscopic- assisted vaginal hysterectomy and right salpingo-oophorectomy as well as diagnostic laparoscopy. There was evidence of diverticulosis in the colon also there was a umbilical hernia defect. Patient underwent repair of hernia and removal of granuloma as it was discussed previously with the patient that likely will proceed with consultation by surgeon for further evaluation and rule out some other pathologies due to constant abdominal pain. Intra-Op course was uncomplicated. Postoperatively patient had a slow recovery. She initially had evidence of ileus and slow urinary flow that improved. On postoperative day #2 patient was noted to be stable enough for discharge. She was ambulating. She tolerated diet. She was afebrile. Her vitals were stable. She was feeling well and desires to go home. Her urine flow was significantly improved. Her PVR significantly improved. She had passed gas and had bowel movement. Of note that patient had a GI consultation while in-house as well as nutrition consultation due to chronic issue with the defecation and bowel movement. She also had a GI as outpatient that had been following her. She was advised to have a follow-up in 2 weeks with a gynecology for postop visit as well as follow-up as outpatient with her GI for continuation of treatme nt of diverticulosis. Patient verbalized understanding plan of care and agreed to comply with instruction. Discussed with the patient to return to emergency room in case of fever, chills, increasing abdominal pain, abnormal vaginal discharge or any other concerns. Hospital Course Non complicated Home Meds No Active Prescriptions or Reported Meds Follow-up Plan Follow up in 2 weeks with [employer] for post op check follow up as out patient with GI Primary Care Provider Not On Staff Doctor Time spent on discharge: > 30 minutes RADHA UAMÑA MD Jan 01, 2019 19:58
[2019-01-01] MEDS ORDERED: LACTOBACILLUS RHAMNOSUS CAP PO SCH (21:00)
[2019-01-02] MEDS ORDERED: POLYETHYLENE GLYCOL 17 GM PACKET PO SCH (09:00)
== END 2019-01-01 21:45 | disposition home or self-care (01) | DRG 742 ==
LOC: EDSTATUS 15:30 → REC 12-29 13:16 → MS1 12-29 21:27
PROVIDERS: ADMIT Obstetrics & Gynecology Obstetrics; ATTEND Obstetrics & Gynecology Obstetrics
PROC: 0UB00ZZ Excision of Right Ovary, Open Approach (ICD-10-PCS; 2018-12-29)
PROC: 0WQF0ZZ Repair Abdominal Wall, Open Approach (ICD-10-PCS; 2018-12-29)
PROC: 0UT50ZZ Resection of Right Fallopian Tube, Open Approach (ICD-10-PCS; 2018-12-29)
PROC: 0UT9FZZ Resection of Uterus, Via Natural or Artificial Opening With Percutaneous Endoscopic Assistance (ICD-10-PCS; principal; 2018-12-29 15:00)
DX: D25.1 Intramural leiomyoma of uterus (principal); N83.53 Torsion of ovary, ovarian pedicle and fallopian tube; K56.0 Paralytic ileus; E46 Unspecified protein-calorie malnutrition; Z68.1 Body mass index [BMI] 19.9 or less, adult; N94.89 Other specified conditions associated with female genital organs and menstrual cycle; R10.2 Pelvic and perineal pain; K43.9 Ventral hernia without obstruction or gangrene; Z72.0 Tobacco use; D25.2 Subserosal leiomyoma of uterus; N83.201 Unspecified ovarian cyst, right side; K59.00 Constipation, unspecified; K57.90 Diverticulosis of intestine, part unspecified, without perforation or abscess without bleeding; N95.2 Postmenopausal atrophic vaginitis; D64.9 Anemia, unspecified; R39.198 Other difficulties with micturition
CPT/HCPCS: 74018; 80048; 80053; 80170; 81001; 85025; 85610; 85730; 86850; 86900; 86901; 87086; 88104; 88305; J0690; J1170; J1580; J2175; J2405; J2710; J2765; J3010; J7120